=== PATIENT | female | born 1980 | race Hispanic/Latino ===

== ENCOUNTER 2019-03-08 20:03 | Emergency (ER) | payer SELFPAY ==
[2019-03-08] MEDS ORDERED: Metoclopramide HCl 10 MG/2 ML VIAL ONE (22:42)
[2019-03-08] MEDS ORDERED: diphenhydrAMINE 50 MG/ML VIAL ONE (22:42)
--- NOTE | 2019-03-08 22:59 | CT ---
FCT Brain WO Con: 03/08/2019 10:35 PM CLINICAL HISTORY: Headache. COMPARISON: None. FINDINGS: Hemorrhage: None. Ventricular system: Normal in size and morphology for the patient's age. Cerebral parenchyma: Normal Midline shift: None. Mass: No mass effect. Calvarium: Normal. Visualized Paranasal sinuses: Clear. IMPRESSION: No acute intracranial abnormalities.
[2019-03-08] MEDS ORDERED: Proparacaine 0.5% Opth 15 ML BOT ONE (23:00)
== END 2019-03-09 00:13 | disposition home or self-care (01) ==
LOC: ERS 20:03
DX: R51 Headache (principal)
CPT/HCPCS: 36416; 70450; 96365; 96375; J1200; J2765

== ENCOUNTER 2020-10-19 16:34 | Emergency (ER) | payer OTHER ==
[2020-10-19] MEDS ORDERED: Acetaminophen 325 MG TAB ONE (17:25)
[2020-10-19] MEDS ORDERED: Ondansetron PF 4 MG/2 ML Vial ONE (17:25)
[2020-10-19] MEDS ORDERED: Ibuprofen 200 MG TAB ONE (17:25)
[2020-10-19 17:54] LABS: #Lymphocytes 0.7 thou/uL (1.20-3.40); #Monocytes 0.3 thou/uL (0.11-0.59); #Neutrophils 3.4 thou/uL (1.40-6.50); %Basophils 0.6 % (0.0-1.0); %Eosinophils 0.3 % (0.0-10.0); %Lymphocytes 14.9 % (21.0-51.0); %Monocytes 7.7 % (0.0-10.0); %Neutrophils 76.5 % (42.0-75.0); Hemoglobin 14.8 g/dL (12.0-16.0); Mean Corpuscular HGB CONC 33.2 g/dL (32.0-36.0); Mean Corpuscular Hemoglobin 31.7 pg (27.0-31.0); Mean Corpuscular Volume 95.6 fL (78.0-98.0); Mean Platelet Volume 9.4 fL (7.4-10.4); Platelet Count 145 thou/uL (130-400); RBC Distribution Width 12.1 % (11.5-14.5); Red Blood Cell (RBC) Count 4.67 mill/uL (4.20-5.40); White Blood Cell (WBC) Count 4.4 thou/uL (4.8-10.8)
--- NOTE | 2020-10-19 18:20 | RAD ---
PORTABLE CHEST: 10/19/20 HISTORY: Cough. Positive COVID. There are hazy infiltrates seen in the left mid and lower lung. Elevated left hemidiaphragm. Right lung appears clear. Heart and mediastinum unremarkable. IMPRESSION: Hazy infiltrates in the left mid and lower lung consistent with COVID pneumonia. POS: [facility]
[2020-10-19 18:21] LABS: ALT (SGPT) 203 U/L (8-55); AST (SGOT) 218 U/L (5-34); Albumin 3.9 g/dL (3.5-5.0); Alkaline Phosphatase 274 U/L (40-110); Anion Gap 16 mmol/L (10-20); BUN (Urea Nitrogen) 11 mg/dL (7.0-18.7); Bilirubin, Total 0.4 mg/dL (0.2-1.2); Calc. Creatinine Clearance 0 mL/min (70-130); Calcium 8.3 mg/dL (7.8-10.44); Carbon Dioxide 17 mmol/L (22-29); Chloride 104 mmol/L (98-107); Estimated GFR-MDRD 73; Globulin 3.9 g/dL (2.4-3.5); Glucose 128 mg/dL (70-105); Potassium 3.9 mmol/L (3.5-5.1); Protein, Total 7.8 g/dL (6.0-8.3); Sodium 133 mmol/L (136-145)
[2020-10-19 18:32] LABS: BHCG - Serum Negative (NEGATIVE); Pregs Control Background? CLEAR/WHITE (CLR/WHITE); Pregs Control Bar Appear? YES (CONTROL BAR)
[2020-10-19] MEDS ORDERED: cefTRIAXone\\ROCEPHIN 2 GM VIAL ONE (18:40)
[2020-10-19] MEDS ORDERED: Azithromycin 500 MG in Sodium Chloride 0.9% 250 ML 250 ML IVPB ONE (19:15)
--- NOTE | 2020-10-22 16:34 | EKG ---
Test Reason : Blood Pressure : / mmHG Vent. Rate : 127 BPM Atrial Rate : 127 BPM P-R Int : 126 ms QRS Dur : 078 ms QT Int : 276 ms P-R-T Axes : 118 -24 145 degrees QTc Int : 401 ms Sinus tachycardia Low voltage QRS Cannot rule out Anterior infarct , age undetermined Abnormal ECG Confirmed by JUANCHO HODGES DO ([id number]), editor at large DAVEY SINGH ([id number]) on 10/22/2020 4:34:03 PM Referred By: Confirmed By:JUANCHO HODGES DO
== END 2020-10-19 20:46 | disposition home or self-care (01) ==
LOC: ERS 16:34
DX: U07.1 COVID-19 (principal); J12.89 Other viral pneumonia
CPT/HCPCS: 36415; 71045; 80053; 83605; 84484; 84703; 85025; 85379; 87040; 93005; 96365; 96367; 96375; J0456; J0696; J2405; J7050

== ENCOUNTER 2020-10-21 18:42 | Inpatient (IN) | payer OTHER ==
[~2020-10-21 18:42] MED LIST: Iopamidol-370 76% 500 ML 1 ML ONE
[2020-10-21] MEDS ORDERED: Acetaminophen 500 MG TAB ONE (19:10)
[2020-10-21] MEDS ORDERED: CEFAZOLIN 1 GM VIAL ONE (19:10)
[2020-10-21] MEDS ORDERED: Azithromycin 500 MG VIAL ONE (19:10)
[2020-10-21] MEDS ORDERED: cefTRIAXone\\ROCEPHIN 1 GM VIAL ONE (19:11)
[2020-10-21 19:45] LABS: Hemoglobin 14.2 g/dL (12.0-16.0); Mean Corpuscular HGB CONC 33.1 g/dL (32.0-36.0); Mean Corpuscular Hemoglobin 31.5 pg (27.0-31.0); Mean Corpuscular Volume 95.4 fL (78.0-98.0); Mean Platelet Volume 8.7 fL (7.4-10.4); Platelet Count 217 thou/uL (130-400); RBC Distribution Width 12.3 % (11.5-14.5); Red Blood Cell (RBC) Count 4.49 mill/uL (4.20-5.40)
--- NOTE | 2020-10-21 19:48 | RAD ---
EXAM: CHEST ONE VIEW PORTABLE: 10/21/20 HISTORY: COVID positive. Increasing shortness of breath. COMPARISON: 10/02/20 FINDINGS: There are progressive bilateral alveolar and ground glass opacity changes when compared to the prior study. Very poor inspiratory effort. IMPRESSION: Worsening bilateral COVID pneumonia with considerable decreased inspiration. POS: [facility]
[2020-10-21] MEDS ORDERED: Azithromycin 250 MG TAB ONE (19:49)
[2020-10-21 20:08] LABS: ALT (SGPT) 162 U/L (8-55); AST (SGOT) 91 U/L (5-34); Albumin 3.6 g/dL (3.5-5.0); Alkaline Phosphatase 268 U/L (40-110); Anion Gap 17 mmol/L (10-20); BUN (Urea Nitrogen) 7 mg/dL (7.0-18.7); Band 12 % (5-11); Bilirubin, Total 0.5 mg/dL (0.2-1.2); Calc. Creatinine Clearance 0 mL/min (70-130); Calcium 8.6 mg/dL (7.8-10.44); Carbon Dioxide 17 mmol/L (22-29); Chloride 107 mmol/L (98-107); Estimated GFR-MDRD 70; Globulin 3.9 g/dL (2.4-3.5); Glucose 128 mg/dL (70-105); Lipase 27 U/L (8-78); Lymphocytes 2 % (21-51); MDiff Complete? YES; Neutrophil 86 % (42-75); Potassium 3.7 mmol/L (3.5-5.1); Protein, Total 7.5 g/dL (6.0-8.3); Sodium 137 mmol/L (136-145)
[2020-10-21] MEDS ORDERED: Dexamethasone 10 MG/ML VIAL ONE (21:24)
[2020-10-21] MEDS ORDERED: Azithromycin 500 MG in Sodium Chloride 0.9% 250 ML 250 ML IVPB SCH (21:30)
--- NOTE | 2020-10-21 22:30 | PDOC.BPN ---
- Brief Progress Note [id number] HP dictated
[2020-10-21 22:35] LABS: BHCG - Serum Negative (NEGATIVE); Pregs Control Background? CLEAR/WHITE (CLR/WHITE); Pregs Control Bar Appear? YES (CONTROL BAR)
--- NOTE | 2020-10-21 23:29 | CT ---
CT angiogram chest: 10/21/2020 HISTORY: Dyspnea, elevated d-dimer TECHNIQUE: Axial CT imaging at 2.5 mm intervals through the chest with IV contrast using CT angiogram protocol. Coronal and sagittal 3-D reformatted imaging obtained. FINDINGS: There is extensive diffuse bilateral multi lobar groundglass opacity/interstitial disease w ith multifocal consolidation, left greater than right. No axillary, hilar, or mediastinal lymphadenopathy is noted. A linear suture line is seen in the region of the stomach. Cholecystectomy clips are present. A mild degree of distal esophageal wall thickening and luminal prominence noted. No evidence for pulmonary arterial embolism. No acute osseous abnormality. IMPRESSION: Extensive severe airspace disease/groundglass opacity bilaterally, suspicious for atypica l infectious pneumonitis such as Covid 19. No evidence for a pulmonary arterial embolism.
--- NOTE | 2020-10-22 00:08 | HP ---
CHIEF COMPLAINT: Shortness of breath. HISTORY OF PRESENT ILLNESS: Ms. Valle is a 40-year-old female with no significant past medical history, presents to the emergency room with shortness of breath. The patient was diagnosed with COVID pneumonia yesterday, however, she has been symptomatic for the last 5 days, presented with fevers, chest pain and shortness of breath. Chest pain is described as sharp in nature, worse with deep inspiration. Workup in the emergency room including chest x-ray showed worsening bilateral COVID pneumonia. D-dimer was 0.5. Troponin less than 0.01. Electrolytes elevated. Alkaline phosphatase 268, AST 91, ALT 162, glucose is 128. WBC count is 26, hemoglobin 14.2, platelets 217, 86% neutrophils, 12 bands, and 2% lymphocytes. In the emergency room, patient was given IV antibiotics, IV dexamethasone, and placed on oxygen. Her oxygen saturation was 88% on room air. PHYSICAL EXAMINATION: GENERAL: The patient is awake, in moderate distress. VITAL SIGNS: Blood pressure is 104/38, pulse is 101, respiratory rate is 24, temperature 101.8. Oxygen saturation is 88% on room air, 94% on 4 L/minute nasal cannula. HEAD AND NECK: Head normocephalic, atraumatic. Neck is supple. CHEST: Coarse bilateral breath sounds. Respirations are labored. HEART: S1, S2. Regular, tachycardic. ABDOMEN: Soft, nontender, soft. Bowel sounds present. NEUROLOGIC: Awake, alert, moving extremities. PSYCH: Unable to assess. EXTREMITIES: No clubbing or cyanosis. LABORATORY DATA: As mentioned above in history of present illness. IMAGING STUDIES: As mentioned above in history of present illness. ASSESSMENT: 1. Acute hypoxic respiratory failure. 2. Pneumonia secondary to coronavirus disease 2019 virus infection. 3. Transaminitis. 4. Sepsis secondary to coronavirus disease 2019 virus infection? PLAN: 1. Admit. 2. Septic workup in the ED. 3. Isolation precautions. 4. Oxygen to keep saturation more than 92%. 5. IV dexamethasone. 6. Bronchodilators as needed. 7. Consult Pulmonary in a.m. for evaluation and further recommendations. 8. Reconcile home medications. 9. DVT prophylaxis as appropriate. 10. Expected length of stay, 2 midnights or more. Job ID: [id number]
[2020-10-22 00:39] LABS: Bilirubin Negative (Negative); Blood, Urine 1+ (Negative); Clarity Clear (Clear); Glucose, Urine (Dipstick) Normal (Negative); Ketone, Urine Trace mg/dL (Negative); Leukocyte Negative Leu/uL (Negative); Nitrite Negative (Negative); Protein, Urine (Dipstick) 300 mg/dL (Neg-Trace); RBC/HPF 21-50 HPF (0-3); Squamous Epithelial 0-3 HPF (0-3); Urobilinogen Normal mg/dL (Less than 2)
[2020-10-22 00:40] LABS: Bacteria/HPF Rare-Few HPF (None Seen); Specific Gravity, Urine 1.052 (1.002-1.036)
[2020-10-22 07:47] LABS: Band 13 % (5-11); Hemoglobin 12.6 g/dL (12.0-16.0); Lymphocytes 3 % (21-51); MDiff Complete? YES; Mean Corpuscular HGB CONC 33.6 g/dL (32.0-36.0); Mean Corpuscular Hemoglobin 32.2 pg (27.0-31.0); Mean Corpuscular Volume 95.6 fL (78.0-98.0); Mean Platelet Volume 8.5 fL (7.4-10.4); Monocytes 1 % (0-10); Neutrophil 83 % (42-75); Platelet Count 214 thou/uL (130-400); RBC Distribution Width 12.2 % (11.5-14.5); Red Blood Cell (RBC) Count 3.92 mill/uL (4.20-5.40)
[2020-10-22] MEDS ORDERED: Enoxaparin Sodium 40 MG/0.4 ML SYRINGE ONE (08:29)
[2020-10-22] MEDS ORDERED: Famotidine 20 MG TAB ONE (08:29)
[2020-10-22] MEDS: Dexamethasone 6 MG in Sodium Chloride 0.9% 50 ML IVPB SCH (09:04)
[2020-10-22] MEDS: Enoxaparin Sodium 40 MG/0.4 ML SYRINGE SC SCH (09:07)
[2020-10-22] MEDS: Famotidine 20 MG TAB PO SCH ×2 (09:08→20:47)
[2020-10-22] MEDS ORDERED: Acetaminophen 325 MG TAB ONE (11:49)
--- NOTE | 2020-10-22 11:50 | PDOC.HOSPP ---
- Subjective Encounter Date: 10/22/20 (f/u COVID pneumonia) Encounter Time: 11:48 Subjective: Pt c/o shortness of breath, coughing - thick feeling in chest but not productive, diarrhea (ongoing x 10 days). She was feeling anxious like she couldn't breathe earlier. She's had respiratory sx for 4 days. - Objective Result Diagrams: 10/22/20 06:57 10/22/20 11:54 Hospitalist ROS - Medication Medications: Active Medications Generic Name Dose Route Start Last Admin Trade Name Duc PRN Reason Stop Dose Admin Enoxaparin Sodium 40 mg 10/22/20 09:00 10/22/20 09:07 Enoxaparin Sodium 40 Mg/0.4 Ml Syringe SC 40 mg 0900 YANETH Administration Famotidine 20 mg 10/22/20 09:00 10/22/20 09:08 Famotidine 20 Mg Tab PO 20 mg BID YANETH Administration Azithromycin 500 mg/ Sodium 250 mls @ 250 mls/hr 10/21/20 21:30 10/21/20 19:45 Chloride IVPB 250 mls Q24HR YANETH Administration Dexamethasone 6 mg/ Sodium 50.6 mls @ 100 mls/hr 10/22/20 09:00 10/22/20 09:04 Chloride IVPB 50.6 mls DAILY YANETH Administration - Exam General Appearance: NAD Heart: RRR, no murmur Respiratory: no wheezes, no rales, no ronchi Respiratory - other findings: decreased breath sounds throughout, shallow breaths Gastrointestinal: soft, non-tender, non-distended, normal bowel sounds Extremities: no cyanosis, no clubbing, no edema Psychiatric: normal affect Hosp A/P (1) Pneumonia due to COVID-19 virus Code(s): U07.1 - COVID-19; J12.89 - OTHER VIRAL PNEUMONIA Status: Acute (2) Acute respiratory failure Code(s): J96.00 - ACUTE RESPIRATORY FAILURE, UNSP W HYPOXIA OR HYPERCAPNIA Status: Acute (3) Obesity Code(s): E66.9 - OBESITY, UNSPECIFIED Status: Acute (4) Elevated liver enzymes Code(s): R74.8 - ABNORMAL LEVELS OF OTHER SERUM ENZYMES Status: Acute - Plan Acute resp failure secondary to COVID pneumonia - continue high flow oxygen - continue steroids, abx - Consult Pulm for additional tx recommendations. - Will see if ID is available for consult/recs - prn albuterol MDI - prn very low dose alprazolam for anxious sx - prn cough med - obtain ferritin and crp levels Elevated liver tests - trend dvt prophy - lovenox gi prophy - famotidine while on steroids code status full reviewed plan of care with patient, no questions or further needs at end of eval. Addendum - spoke with Dr. Lerner - d/c abx and start remdesivir. I d/w pharmacist to order medication.
[2020-10-22 12:23] LABS: ALT (SGPT) 119 U/L (8-55); AST (SGOT) 57 U/L (5-34); Albumin 3.2 g/dL (3.5-5.0); Alkaline Phosphatase 217 U/L (40-110); Anion Gap 17 mmol/L (10-20); BUN (Urea Nitrogen) 9 mg/dL (7.0-18.7); Bilirubin, Total 0.4 mg/dL (0.2-1.2); Calc. Creatinine Clearance 0 mL/min (70-130); Calcium 8.2 mg/dL (7.8-10.44); Carbon Dioxide 16 mmol/L (22-29); Chloride 110 mmol/L (98-107); Estimated GFR-MDRD Greater than 90; Globulin 3.5 g/dL (2.4-3.5); Glucose 132 mg/dL (70-105); Potassium 3.9 mmol/L (3.5-5.1); Protein, Total 6.7 g/dL (6.0-8.3); Sodium 139 mmol/L (136-145)
[2020-10-22] MEDS ORDERED: ALPRAZolam 0.25 MG TAB ONE (13:16)
[2020-10-22] MEDS: ALPRAZolam 0.25 MG TAB PO PRN ×2 (13:18→20:51)
[2020-10-22] MEDS: Benzonatate 100 MG CAP PO PRN ×2 (13:19→18:19)
[2020-10-22] MEDS: Guaifenesin DM 100-10/5 ML UDCUP PO PRN ×2 (13:19→20:51)
[2020-10-22] MEDS ORDERED: Albuterol 200 PUFF (6.7GM INHALER) INH PRN (14:05)
[2020-10-22] MEDS ORDERED: REMDESIVIR FS SCH (14:15)
[2020-10-22] MEDS ORDERED: REMDESIVIR (EUA) 200 MG in Sodium Chloride 0.9% 250 ML 210 ML IV SCH (14:30)
--- NOTE | 2020-10-22 17:16 | EKG ---
Test Reason : DYSPNEA Blood Pressure : / mmHG Vent. Rate : 118 BPM Atrial Rate : 118 BPM P-R Int : 134 ms QRS Dur : 090 ms QT Int : 312 ms P-R-T Axes : 027 007 029 degrees QTc Int : 437 ms Sinus tachycardia Otherwise normal ECG Confirmed by VICKY ARNOLD DO ([id number]), multimedia editor DAVEY SINGH ([id number]) on 10/22/2020 5:15:47 PM Referred By: Confirmed By:VICKY ARNOLD DO
[2020-10-22] MEDS ORDERED: cefTRIAXone\\ROCEPHIN 1 GM in Sodium Chloride 0.9% 100 ML IVPB SCH (20:00)
[2020-10-22] MEDS: Acetaminophen 325 MG TAB PO PRN (20:47)
[2020-10-23 06:11] LABS: #Lymphocytes 0.7 thou/uL (1.20-3.40); #Monocytes 0.5 thou/uL (0.11-0.59); #Neutrophils 13.5 thou/uL (1.40-6.50); %Basophils 0.1 % (0.0-1.0); %Eosinophils 0.2 % (0.0-10.0); %Neutrophils 91.8 % (42.0-75.0); Hemoglobin 12.3 g/dL (12.0-16.0); Mean Corpuscular HGB CONC 33.1 g/dL (32.0-36.0); Mean Corpuscular Hemoglobin 31.7 pg (27.0-31.0); Mean Corpuscular Volume 95.8 fL (78.0-98.0); Mean Platelet Volume 8.5 fL (7.4-10.4); Platelet Count 239 thou/uL (130-400); RBC Distribution Width 12.4 % (11.5-14.5); Red Blood Cell (RBC) Count 3.89 mill/uL (4.20-5.40); White Blood Cell (WBC) Count 14.8 thou/uL (4.8-10.8)
[2020-10-23 06:33] LABS: ALT (SGPT) 102 U/L (8-55); AST (SGOT) 53 U/L (5-34); Alkaline Phosphatase 196 U/L (40-110); Anion Gap 17 mmol/L (10-20); BUN (Urea Nitrogen) 14 mg/dL (7.0-18.7); Bilirubin, Total 0.4 mg/dL (0.2-1.2); Calc. Creatinine Clearance 176 mL/min (70-130); Calcium 8.1 mg/dL (7.8-10.44); Carbon Dioxide 17 mmol/L (22-29); Chloride 109 mmol/L (98-107); Estimated GFR-MDRD Greater than 90; Globulin 3.4 g/dL (2.4-3.5); Glucose 127 mg/dL (70-105); Potassium 3.7 mmol/L (3.5-5.1); Protein, Total 6.4 g/dL (6.0-8.3); Sodium 139 mmol/L (136-145)
[2020-10-23] MEDS: Guaifenesin DM 100-10/5 ML UDCUP PO PRN (07:59)
[2020-10-23] MEDS ORDERED: FLU VACC QS2020-21(6MOS UP)/PF 60 MCG/0.5 ML SYRINGE IM ONE (09:00)
[2020-10-23] MEDS: Famotidine 20 MG TAB PO SCH ×2 (09:58→21:30)
[2020-10-23] MEDS: Dexamethasone 6 MG in Sodium Chloride 0.9% 50 ML IVPB SCH ×2 (09:59→21:29)
[2020-10-23] MEDS: Enoxaparin Sodium 40 MG/0.4 ML SYRINGE SC SCH ×2 (09:59→21:28)
--- NOTE | 2020-10-23 12:31 | PDOC.HOSPP ---
- Subjective Encounter Date: 10/23/20 (f/u acute resp failure due to covid pna) Encounter Time: 12:29 Subjective: Pt reports feeling a little more comfortable, but still feels short of breath. Denies any n/v, reports the diarrhea persists. Denies any new sx. - Objective Vital Signs & Weight: Vital Signs (12 hours) Temp Pulse Resp BP Pulse Ox 10/23/20 04:00 98 F 69 18 120/85 100 Weight Weight 205 lb 15.646 oz I&O: 10/22/20 10/23/20 10/24/20 06:59 06:59 06:59 Intake Total 950 Balance 950 Result Diagrams: 10/23/20 06:00 10/23/20 06:00 Additional Labs: Blood and urine cultures negative c diff negative. Hospitalist ROS - Medication Medications: Active Medications Generic Name Dose Route Start Last Admin Trade Name Freq PRN Reason Stop Dose Admin Acetaminophen 650 mg 10/21/20 21:29 10/22/20 20:47 Acetaminophen 325 Mg Tab PO 650 mg Q4H PRN Administration Headache/Fever/Mild Pain (1-3) Alprazolam 0.25 mg 10/22/20 11:46 10/22/20 20:51 Alprazolam 0.25 Mg Tab PO 0.25 mg BIDPRN PRN Administration Anxiety Benzonatate 100 mg 10/22/20 11:46 10/22/20 18:19 Benzonatate 100 Mg Cap PO 100 mg Q4H PRN Administration Cough Famotidine 20 mg 10/22/20 09:00 10/23/20 09:58 Famotidine 20 Mg Tab PO 20 mg BID YANETH Administration Guaifenesin/Dextromethorphan 15 ml 10/22/20 11:46 10/23/20 07:59 Guaifenesin Dm 100-10/5 Ml Udcup PO 15 ml Q4H PRN Administration Cough - Exam General Appearance: NAD Heart: RRR, no murmur Respiratory: no wheezes, no rales, no ronchi Respiratory - other findings: decreased breath sounds throughout-slight improvement compared to yesterday Gastrointestinal: soft, non-tender, non-distended, normal bowel sounds Extremities: no cyanosis, no clubbing, no edema Psychiatric: normal affect Hosp A/P (1) Pneumonia due to COVID-19 virus Code(s): U07.1 - COVID-19; J12.89 - OTHER VIRAL PNEUMONIA Status: Acute (2) Acute respiratory failure Code(s): J96.00 - ACUTE RESPIRATORY FAILURE, UNSP W HYPOXIA OR HYPERCAPNIA Status: Acute (3) Obesity Code(s): E66.9 - OBESITY, UNSPECIFIED Status: Acute (4) Elevated liver enzymes Code(s): R74.8 - ABNORMAL LEVELS OF OTHER SERUM ENZYMES Status: Acute - Plan Acute resp failure secondary to COVID pneumonia - continue high flow oxygen - continue steroids - on remdesivir day 2 of 5 - albuterol prn - daily inflammatory markers - Pulmonology consultation - per Dr. Boyd, convalescent plasma will be ordered Elevated liver tests - attributed to covid infection - trend dvt prophy - lovenox gi prophy - famotidine while on steroids code status full reviewed plan of care with patient, no questions or further needs at end of eval.
--- NOTE | 2020-10-23 14:52 | CON ---
DATE OF CONSULTATION: HISTORY OF PRESENT ILLNESS: Domonique Valle is a 40-year-old obese [place] female, who weighs 157 kg, who was admitted on Saturday, the 1844 hours with O2 saturation of 88%, pulse 130, blood pressure 130/80. She said she has been sick for several days, fever, shortness of breath, tested positive for virus. X-ray showed bibasilar infiltrates. CAT scan showed diffuse ground-glass haziness, consistent with coronavirus pneumonia. PAST MEDICAL HISTORY: Pertinent for morbid obesity. PAST SURGICAL HISTORY: Gastric bypass, cholecystectomy, and some kind of cyst removed. HOME MEDICINES: None. ALLERGIES: NONE. REVIEW OF SYSTEMS: Ten-point negative. PHYSICAL EXAMINATION: VITAL SIGNS: Temperature 98, pulse 69, respiratory rate 18, sats 100% on high-flow, rate 45, 45% FiO2, blood pressure 120/85. CHEST: No wheezing. No crackles. CARDIAC: Normal S1, S2. No gallops. ABDOMEN: Unremarkable. LABORATORY DATA: C-reactive protein is 16. Ferritin is 1497. Liver function elevated; ALT 102, AST 53. Lytes are normal. IMPRESSION: Santacruz positive pneumonia, respiratory failure, morbid obesity, gastric bypass surgery. PLAN: Increase the dose of remdesivir, Pepcid, Lovenox twice a day, convalescent plasma. Liver function abnormal. She was started on remdesivir. I will closely observe liver function. If levels go high, this may have to be discontinued. Consultation note, 70 minutes, 50% direct patient care. Job ID: [id number]
[2020-10-23] MEDS: REMDESIVIR (EUA) 100 MG in Sodium Chloride 0.9% 250 ML 230 ML IV SCH (15:12)
[2020-10-23] MEDS: Acetaminophen 325 MG TAB PO PRN ×2 (16:08→21:27)
[2020-10-23] MEDS ORDERED: Loperamide HCl 2 MG CAP PO PRN (18:09)
[2020-10-23] MEDS ORDERED: Famotidine/PF 20 mg/2ml Vial SLOW IVP SCH (21:00)
[2020-10-23] MEDS: Mometasone 200 MCG/Formoterol 5 MCG 120 PUFF INHALER INH SCH (21:26)
[2020-10-23] MEDS: Benzonatate 100 MG CAP PO PRN (21:27)
[2020-10-23] MEDS: ALPRAZolam 0.25 MG TAB PO PRN (21:28)
[2020-10-24 06:34] LABS: Hemoglobin 12.6 g/dL (12.0-16.0); Mean Corpuscular HGB CONC 33.7 g/dL (32.0-36.0); Mean Corpuscular Hemoglobin 31.8 pg (27.0-31.0); Mean Corpuscular Volume 94.5 fL (78.0-98.0); Mean Platelet Volume 8.6 fL (7.4-10.4); Platelet Count 261 thou/uL (130-400); RBC Distribution Width 12.3 % (11.5-14.5); Red Blood Cell (RBC) Count 3.97 mill/uL (4.20-5.40); White Blood Cell (WBC) Count 10.1 thou/uL (4.8-10.8)
[2020-10-24] MEDS: Mometasone 200 MCG/Formoterol 5 MCG 120 PUFF INHALER INH SCH ×2 (06:34→17:46)
[2020-10-24 06:45] LABS: ALT (SGPT) 93 U/L (8-55); AST (SGOT) 50 U/L (5-34); Alkaline Phosphatase 188 U/L (40-110); Bilirubin, Direct 0.3 mg/dL (0.1-0.3); Bilirubin, Total 0.4 mg/dL (0.2-1.2); Protein, Total 6.3 g/dL (6.0-8.3)
[2020-10-24 06:50] LABS: ALT (SGPT) 94 U/L (8-55); AST (SGOT) 48 U/L (5-34); Albumin 3.1 g/dL (3.5-5.0); Alkaline Phosphatase 189 U/L (40-110); Anion Gap 15 mmol/L (10-20); BUN (Urea Nitrogen) 12 mg/dL (7.0-18.7); Bilirubin, Total 0.5 mg/dL (0.2-1.2); CRP (Inflammatory) 6.97 mg/dL (= or < 0.5); Calc. Creatinine Clearance 179 mL/min (70-130); Calcium 8.1 mg/dL (7.8-10.44); Carbon Dioxide 20 mmol/L (22-29); Chloride 109 mmol/L (98-107); Estimated GFR-MDRD Greater than 90; Globulin 3.2 g/dL (2.4-3.5); Glucose 150 mg/dL (70-105); Potassium 3.5 mmol/L (3.5-5.1); Protein, Total 6.3 g/dL (6.0-8.3); Sodium 140 mmol/L (136-145)
[2020-10-24 07:00] LABS: Band 4 % (5-11); Lymphocytes 7 % (21-51); MDiff Complete? YES; Monocytes 1 % (0-10); Neutrophil 88 % (42-75)
[2020-10-24] MEDS: Enoxaparin Sodium 40 MG/0.4 ML SYRINGE SC SCH ×2 (08:24→20:30)
[2020-10-24] MEDS: Famotidine 20 MG TAB PO SCH ×2 (08:24→20:31)
[2020-10-24] MEDS: ALPRAZolam 0.25 MG TAB PO PRN ×2 (08:24→20:31)
[2020-10-24] MEDS: Dexamethasone 6 MG in Sodium Chloride 0.9% 50 ML IVPB SCH ×2 (08:25→20:30)
--- NOTE | 2020-10-24 11:33 | PRG ---
DATE OF SERVICE: 10/24/2020 SUBJECTIVE: Day #3 in the hospital, zepeda positive pneumonia. OBJECTIVE: VITAL SIGNS: Temperature 98, pulse 55, respiratory rate 16, sats 95% on FiO2 50, flow rate 45, blood pressure 130/76. GENERAL: She says she is doing well. CHEST: No wheezing. No crackles. CARDIAC: Normal S1 and S2. No gallops. ABDOMEN: No masses. LABORATORY DATA: Unremarkable. C-reactive protein is elevated at 6.97. ALT 93. IMPRESSION: Zepeda positive pneumonia, respiratory failure, on high-dose Decadron, remdesivir, convalescent plasma. PLAN: Continue supportive care, PT. We will follow. Job ID: [id number]
--- NOTE | 2020-10-24 12:29 | PDOC.HOSPP ---
- Subjective Encounter Date: 10/24/20 (f/u acute resp failure due to covid pna) Encounter Time: 12:27 Subjective: Pt thinks she feels a little better. She reports being very short of breath when she is up to the bedside commode. - Objective Vital Signs & Weight: Vital Signs (12 hours) Temp Pulse Resp BP Pulse Ox 10/24/20 09:00 98.3 F 55 L 16 113/76 94 L 10/24/20 08:00 94 L 10/24/20 04:03 98.4 F 64 18 132/80 97 Weight Weight 205 lb 15.646 oz I&O: 10/23/20 10/24/20 10/25/20 06:59 06:59 06:59 Intake Total 950 1190 Balance 950 1190 Result Diagrams: 10/24/20 06:00 10/24/20 06:00 Hospitalist ROS - Medication Medications: Active Medications Generic Name Dose Route Start Last Admin Trade Name Freq PRN Reason Stop Dose Admin Acetaminophen 650 mg 10/21/20 21:29 10/23/20 21:27 Acetaminophen 325 Mg Tab PO 650 mg Q4H PRN Administration Headache/Fever/Mild Pain (1-3) Albuterol Sulfate 2 puff 10/22/20 14:05 10/23/20 13:35 Albuterol 200 Puff (6.7gm Inhaler) INH 2 puff [id number] PRN Administration Wheezing Alprazolam 0.25 mg 10/22/20 11:46 10/24/20 08:24 Alprazolam 0.25 Mg Tab PO 0.25 mg BIDPRN PRN Administration Anxiety Benzonatate 100 mg 10/22/20 11:46 10/23/20 21:27 Benzonatate 100 Mg Cap PO 100 mg Q4H PRN Administration Cough Enoxaparin Sodium 40 mg 10/23/20 21:00 10/24/20 08:24 Enoxaparin Sodium 40 Mg/0.4 Ml Syringe SC 40 mg BID YANETH Administration Famotidine 20 mg 10/22/20 09:00 10/24/20 08:24 Famotidine 20 Mg Tab PO 20 mg BID YANETH Administration Guaifenesin/Dextromethorphan 15 ml 10/22/20 11:46 10/23/20 07:59 Guaifenesin Dm 100-10/5 Ml Udcup PO 15 ml Q4H PRN Administration Cough Remdesivir 100 mg/ Sodium 250 mls @ 250 mls/hr 10/23/20 14:00 10/23/20 15:12 Chloride IV 10/26/20 14:59 250 mls 1400 YANETH Administration Dexamethasone 6 mg/ Sodium 50.6 mls @ 100 mls/hr 10/23/20 21:00 10/24/20 08:25 Chloride IVPB 50.6 mls BID YANETH Administration Loperamide HCl 2 mg 10/23/20 18:09 10/23/20 21:32 Loperamide Hcl 2 Mg Cap PO 2 mg PRN PRN Administration Diarrhea/Loose Stools Mometasone Furoate/Formoterol Fumar 2 puff 10/23/20 18:30 10/24/20 06:34 Mometasone 200 Mcg/Formoterol 5 Mcg 120 Puff Inhaler INH 2 puff BID-RT YANETH Administration - Exam General Appearance: NAD Heart: RRR, no murmur Respiratory: no wheezes, no rales, no ronchi Respiratory - other findings: slightly deeper breaths today Gastrointestinal: soft, non-tender, non-distended, normal bowel sounds Extremities: no cyanosis, no clubbing, no edema Psychiatric: normal affect Hosp A/P (1) Pneumonia due to COVID-19 virus Code(s): U07.1 - COVID-19; J12.89 - OTHER VIRAL PNEUMONIA Status: Acute (2) Acute respiratory failure Code(s): J96.00 - ACUTE RESPIRATORY FAILURE, UNSP W HYPOXIA OR HYPERCAPNIA Status: Acute (3) Obesity Code(s): E66.9 - OBESITY, UNSPECIFIED Status: Acute (4) Elevated liver enzymes Code(s): R74.8 - ABNORMAL LEVELS OF OTHER SERUM ENZYMES Status: Acute - Plan Acute resp failure secondary to COVID pneumonia - improved WBC count and lower inflammatory markers - on day 3 of 5 remdesivir and steroids - s/p convalescent plasma - continue high flow oxygen - wean as tolerated - albuterol prn - appreciate Pulm consult Elevated liver tests - attributed to covid infection - stable dvt prophy - lovenox gi prophy - famotidine while on steroids code status full reviewed plan of care with patient, no questions or further needs at end of eval.
[2020-10-24] MEDS: REMDESIVIR (EUA) 100 MG in Sodium Chloride 0.9% 250 ML 230 ML IV SCH (15:00)
[2020-10-24] MEDS: Benzonatate 100 MG CAP PO PRN (20:31)
[2020-10-24] MEDS: Acetaminophen 325 MG TAB PO PRN (20:31)
[2020-10-25] MEDS: Mometasone 200 MCG/Formoterol 5 MCG 120 PUFF INHALER INH SCH ×2 (05:55→17:35)
[2020-10-25 06:55] LABS: ALT (SGPT) 115 U/L (8-55); AST (SGOT) 68 U/L (5-34); Alkaline Phosphatase 183 U/L (40-110); Bilirubin, Direct 0.5 mg/dL (0.1-0.3); Bilirubin, Total 0.7 mg/dL (0.2-1.2)
[2020-10-25 06:56] LABS: ALT (SGPT) 118 U/L (8-55); AST (SGOT) 67 U/L (5-34); Albumin 2.9 g/dL (3.5-5.0); Alkaline Phosphatase 186 U/L (40-110); Anion Gap 14 mmol/L (10-20); BUN (Urea Nitrogen) 11 mg/dL (7.0-18.7); Bilirubin, Total 0.6 mg/dL (0.2-1.2); CRP (Inflammatory) 3.45 mg/dL (= or < 0.5); Calc. Creatinine Clearance 179 mL/min (70-130); Calcium 7.9 mg/dL (7.8-10.44); Carbon Dioxide 22 mmol/L (22-29); Chloride 108 mmol/L (98-107); Estimated GFR-MDRD Greater than 90; Globulin 3.1 g/dL (2.4-3.5); Glucose 175 mg/dL (70-105); Potassium 3.4 mmol/L (3.5-5.1); Sodium 141 mmol/L (136-145)
[2020-10-25] MEDS: Enoxaparin Sodium 40 MG/0.4 ML SYRINGE SC SCH ×2 (08:10→20:06)
[2020-10-25] MEDS: ALPRAZolam 0.25 MG TAB PO PRN ×2 (08:10→20:08)
[2020-10-25] MEDS: Benzonatate 100 MG CAP PO PRN ×3 (08:10→20:06)
[2020-10-25] MEDS: Guaifenesin DM 100-10/5 ML UDCUP PO PRN ×3 (08:10→20:06)
[2020-10-25] MEDS: Dexamethasone 6 MG in Sodium Chloride 0.9% 50 ML IVPB SCH ×2 (08:10→20:06)
[2020-10-25] MEDS: Famotidine 20 MG TAB PO SCH ×2 (08:15→20:06)
[2020-10-25] MEDS: Sodium Chloride 0.9% 1,000 ML IV SCH ×2 (09:17→20:07)
[2020-10-25 09:18] LABS: Hemoglobin 12.7 g/dL (12.0-16.0); Lymphocytes 8 % (21-51); MDiff Complete? YES; Mean Corpuscular HGB CONC 33.9 g/dL (32.0-36.0); Mean Corpuscular Hemoglobin 31.9 pg (27.0-31.0); Mean Corpuscular Volume 94.2 fL (78.0-98.0); Mean Platelet Volume 8.6 fL (7.4-10.4); Metamyelocyte 1 % (0-0); Monocytes 5 % (0-10); Myelocyte 1 % (0-0); Neutrophil 85 % (42-75); Platelet Count 285 thou/uL (130-400); Platelet Morphology Comment Appears Adequate; RBC Distribution Width 12.1 % (11.5-14.5); RBC Morphology Normal; Red Blood Cell (RBC) Count 3.98 mill/uL (4.20-5.40); White Blood Cell (WBC) Count 8.8 thou/uL (4.8-10.8)
--- NOTE | 2020-10-25 10:35 | PRG ---
DATE OF SERVICE: 10/25/2020 Santacruz positive pneumonia, respiratory failure, better. OBJECTIVE: VITAL SIGNS: Temperature is 98, pulse 68, respirations 20, sats 97% on high-flow 45% to 50%, blood pressure 103/68. CHEST: No wheezing. No crackles. CARDIAC: Normal S1 and S2. No gallops. ABDOMEN: No masses. LABORATORY DATA: C-reactive protein is 3.5. Liver function elevated, 186 and 118. PLAN: Continue steroids. Continue Remdesivir. Baseline x-ray being ordered. Job ID: [id number]
--- NOTE | 2020-10-25 12:58 | PDOC.HOSPP ---
- Subjective Encounter Date: 10/25/20 Encounter Time: 10:30 Subjective: Patient up in bed still feels short of breath and has generalized weakness. - Objective Vital Signs & Weight: Vital Signs (12 hours) Temp Pulse Resp BP Pulse Ox 10/25/20 08:39 98.6 F 68 20 103/68 97 10/25/20 08:00 97 10/25/20 05:00 98.1 F 64 18 103/68 96 Weight Weight 205 lb 15.646 oz I&O: 10/24/20 10/25/20 10/26/20 06:59 06:59 06:59 Intake Total 1190 1020 Balance 1190 1020 Result Diagrams: 10/25/20 06:22 10/25/20 06:22 Hospitalist ROS - Review of Systems Respiratory: reports: shortness of breath Cardiovascular: denies: chest pain, palpitations, orthopnea, paroxysmal noc. dyspnea, edema, light headedness, other Gastrointestinal: denies: nausea, vomiting, abdominal pain, diarrhea, constipation, melena, hematochezia, other Genitourinary: denies: dysuria, frequency, incontinence, hematuria, retention, other - Medication Medications: Active Medications Generic Name Dose Route Start Last Admin Trade Name Freq PRN Reason Stop Dose Admin Acetaminophen 650 mg 10/21/20 21:29 10/24/20 20:31 Acetaminophen 325 Mg Tab PO 650 mg Q4H PRN Administration Headache/Fever/Mild Pain (1-3) Albuterol Sulfate 2 puff 10/22/20 14:05 10/23/20 13:35 Albuterol 200 Puff (6.7gm Inhaler) INH 2 puff [id number] PRN Administration Wheezing Alprazolam 0.25 mg 10/22/20 11:46 10/25/20 08:10 Alprazolam 0.25 Mg Tab PO 0.25 mg BIDPRN PRN Administration Anxiety Benzonatate 100 mg 10/22/20 11:46 10/25/20 08:10 Benzonatate 100 Mg Cap PO 100 mg Q4H PRN Administration Cough Enoxaparin Sodium 40 mg 10/23/20 21:00 10/25/20 08:10 Enoxaparin Sodium 40 Mg/0.4 Ml Syringe SC 40 mg BID YANETH Administration Famotidine 20 mg 10/22/20 09:00 10/25/20 08:15 Famotidine 20 Mg Tab PO 20 mg BID YANETH Administration Guaifenesin/Dextromethorphan 15 ml 10/22/20 11:46 10/25/20 08:10 Guaifenesin Dm 100-10/5 Ml Udcup PO 15 ml Q4H PRN Administration Cough Remdesivir 100 mg/ Sodium 250 mls @ 250 mls/hr 10/23/20 14:00 10/24/20 15:00 Chloride IV 10/26/20 14:59 250 mls 1400 YANETH Administration Dexamethasone 6 mg/ Sodium 50.6 mls @ 100 mls/hr 10/23/20 21:00 10/25/20 08:10 Chloride IVPB 50.6 mls BID YANETH Administration Sodium Chloride 1,000 mls @ 75 mls/hr 10/25/20 09:15 10/25/20 09:17 Normal Saline 0.9% IV 1,000 mls .[id number] YANETH Administration Loperamide HCl 2 mg 10/23/20 18:09 10/23/20 21:32 Loperamide Hcl 2 Mg Cap PO 2 mg PRN PRN Administration Diarrhea/Loose Stools Mometasone Furoate/Formoterol Fumar 2 puff 10/23/20 18:30 10/25/20 05:55 Mometasone 200 Mcg/Formoterol 5 Mcg 120 Puff Inhaler INH 2 puff BID-RT YANETH Administration - Exam Neck: negative: supple, symmetric, no JVD, no thyromegaly, no lymphadenopathy, no carotid bruit, JVD Heart: negative: RRR, no murmur, no gallops, no rubs, normal peripheral pulses, irregular, diminshed peripheral pulses, murmur present, II/IV, III/IV Respiratory: negative: CTAB, no wheezes, no rales, no ronchi, normal chest expansion, no tachypnea, normal percussion, rales, rhonchi, tachypneic, wheezes Gastrointestinal: negative: soft, non-tender, non-distended, normal bowel sounds, no palpable masses, no hepatomegaly, no splenomegaly, no bruit, no guarding, no rigidity, tender to palpation, distended, diminished bowl sounds, voluntary guarding Hosp A/P (1) Acute respiratory failure Code(s): J96.00 - ACUTE RESPIRATORY FAILURE, UNSP W HYPOXIA OR HYPERCAPNIA Status: Acute (2) Elevated liver enzymes Code(s): R74.8 - ABNORMAL LEVELS OF OTHER SERUM ENZYMES Status: Acute (3) Obesity Code(s): E66.9 - OBESITY, UNSPECIFIED Status: Acute (4) Pneumonia due to COVID-19 virus Code(s): U07.1 - COVID-19; J12.89 - OTHER VIRAL PNEUMONIA Status: Acute - Plan Acute resp failure secondary to COVID pneumonia - improved WBC count and lower inflammatory markers - on day 4 of 5 remdesivir and steroids - s/p convalescent plasma - continue high flow oxygen - wean as tolerated - albuterol prn - appreciate Pulm consult Elevated liver tests - attributed to covid infection - stable dvt prophy - lovenox gi prophy - famotidine while on steroids code status full 10/25 we will continue to monitor patient encouraged to get up and move around. She still on high flow.
[2020-10-25] MEDS: REMDESIVIR (EUA) 100 MG in Sodium Chloride 0.9% 250 ML 230 ML IV SCH (14:35)
[2020-10-26] MEDS: Mometasone 200 MCG/Formoterol 5 MCG 120 PUFF INHALER INH SCH ×2 (05:55→18:29)
[2020-10-26] MEDS: Benzonatate 100 MG CAP PO PRN ×2 (05:56→20:53)
[2020-10-26] MEDS: Guaifenesin DM 100-10/5 ML UDCUP PO PRN ×3 (05:56→20:53)
[2020-10-26 07:18] LABS: ALT (SGPT) 133 U/L (8-55); AST (SGOT) 59 U/L (5-34); Albumin 2.8 g/dL (3.5-5.0); Alkaline Phosphatase 166 U/L (40-110); Bilirubin, Direct 0.4 mg/dL (0.1-0.3); Bilirubin, Total 0.6 mg/dL (0.2-1.2); Protein, Total 5.6 g/dL (6.0-8.3)
--- NOTE | 2020-10-26 08:01 | RAD ---
Chest one view HISTORY: Pneumonia. Follow-up. COMPARISON: 10/21/2020. FINDINGS: Cardiac silhouette is magnified by projection and now partially obscured by increasing dens ity of patchy bilateral infiltrates throughout each lung. Pulmonary vasculature upper limits of normal and accentuated by shallow inspiration. Mediastinum is midline. No evidence of pneumothorax. Hemostasis clips overlie the right upper quadrant. IMPRESSION : Slight interval radiographic worsening of multifocal viral appearing infiltrate.
--- NOTE | 2020-10-26 10:15 | PRG ---
DATE OF SERVICE: 10/26/2020 OBJECTIVE: GENERAL: A 40-year-old female. VITAL SIGNS: Temperature 98, pulse 69, respiratory rate 18, sats are 95% on high-flow, 40 rate, FiO2 of 50%, blood pressure 107/68. CHEST: No wheezing. No crackles. CARDIAC: Normal S1, S2. No gallops. LABORATORY DATA: X-ray shows persistent bilateral pulmonary infiltrates. ASSESSMENT AND PLAN: Day #4 remdesivir, convalescent plasma received, morbid obesity, abnormal LFT. Finish remdesivir, continue steroids and empiric antibiotics. Once able to download her oxygen to nasal O2, she may be discharged. We will follow. Job ID: [id number]
[2020-10-26] MEDS: Dexamethasone 6 MG in Sodium Chloride 0.9% 50 ML IVPB SCH ×2 (10:22→20:54)
[2020-10-26] MEDS: Enoxaparin Sodium 40 MG/0.4 ML SYRINGE SC SCH ×2 (10:22→20:53)
[2020-10-26] MEDS: Famotidine 20 MG TAB PO SCH ×2 (10:22→20:53)
[2020-10-26] MEDS: ALPRAZolam 0.25 MG TAB PO PRN ×2 (10:24→21:01)
--- NOTE | 2020-10-26 13:41 | PDOC.HOSPP ---
- Subjective Encounter Date: 10/26/20 Encounter Time: 11:45 Subjective: pt up in bed still complains of sob and weakness. - Objective Vital Signs & Weight: Vital Signs (12 hours) Temp Pulse Resp BP Pulse Ox 10/26/20 09:00 98.0 F 68 20 106/70 98 10/26/20 08:00 98 10/26/20 07:55 94 L 10/26/20 05:00 98.3 F 66 20 107/68 96 Weight Weight 205 lb 15.646 oz I&O: 10/25/20 10/26/20 10/27/20 06:59 06:59 06:59 Intake Total 1020 2450 Balance 1020 2450 Result Diagrams: 10/25/20 06:22 10/25/20 06:22 Hospitalist ROS - Review of Systems Respiratory: reports: shortness of breath Gastrointestinal: denies: nausea, vomiting, abdominal pain, diarrhea, constipation, melena, hematochezia, other Genitourinary: denies: dysuria, frequency, incontinence, hematuria, retention, other Musculoskeletal: denies: neck pain, shoulder pain, arm pain, back pain, hand pain, leg pain, foot pain, other - Medication Medications: Active Medications Generic Name Dose Route Start Last Admin Trade Name Freq PRN Reason Stop Dose Admin Acetaminophen 650 mg 10/21/20 21:29 10/24/20 20:31 Acetaminophen 325 Mg Tab PO 650 mg Q4H PRN Administration Headache/Fever/Mild Pain (1-3) Albuterol Sulfate 2 puff 10/22/20 14:05 10/23/20 13:35 Albuterol 200 Puff (6.7gm Inhaler) INH 2 puff [id number] PRN Administration Wheezing Alprazolam 0.25 mg 10/22/20 11:46 10/26/20 10:24 Alprazolam 0.25 Mg Tab PO 0.25 mg BIDPRN PRN Administration Anxiety Benzonatate 100 mg 10/22/20 11:46 10/26/20 05:56 Benzonatate 100 Mg Cap PO 100 mg Q4H PRN Administration Cough Enoxaparin Sodium 40 mg 10/23/20 21:00 10/26/20 10:22 Enoxaparin Sodium 40 Mg/0.4 Ml Syringe SC 40 mg BID YANETH Administration Famotidine 20 mg 10/22/20 09:00 10/26/20 10:22 Famotidine 20 Mg Tab PO 20 mg BID YANETH Administration Guaifenesin/Dextromethorphan 15 ml 10/22/20 11:46 10/26/20 10:23 Guaifenesin Dm 100-10/5 Ml Udcup PO 15 ml Q4H PRN Administration Cough Remdesivir 100 mg/ Sodium 250 mls @ 250 mls/hr 10/23/20 14:00 10/25/20 14:35 Chloride IV 10/26/20 14:59 250 mls 1400 YANETH Administration Dexamethasone 6 mg/ Sodium 50.6 mls @ 100 mls/hr 10/23/20 21:00 10/26/20 10:22 Chloride IVPB 50.6 mls BID YANETH Administration Sodium Chloride 1,000 mls @ 75 mls/hr 10/25/20 09:15 10/25/20 20:07 Normal Saline 0.9% IV 1,000 mls .[id number] YANETH Administration Loperamide HCl 2 mg 10/23/20 18:09 10/23/20 21:32 Loperamide Hcl 2 Mg Cap PO 2 mg PRN PRN Administration Diarrhea/Loose Stools Mometasone Furoate/Formoterol Fumar 2 puff 10/23/20 18:30 10/26/20 05:55 Mometasone 200 Mcg/Formoterol 5 Mcg 120 Puff Inhaler INH 2 puff BID-RT YANETH Administration - Exam Heart: negative: RRR, no murmur, no gallops, no rubs, normal peripheral pulses, irregular, diminshed peripheral pulses, murmur present, II/IV, III/IV Respiratory: negative: CTAB, no wheezes, no rales, no ronchi, normal chest expansion, no tachypnea, normal percussion, rales, rhonchi, tachypneic, wheezes Gastrointestinal: negative: soft, non-tender, non-distended, normal bowel sounds, no palpable masses, no hepatomegaly, no splenomegaly, no bruit, no guarding, no rigidity, tender to palpation, distended, diminished bowl sounds, voluntary guarding Extremities: negative: no cyanosis, no clubbing, no edema, 1+ LE edema, 2+ LE edema, clubbing Hosp A/P (1) Acute respiratory failure Code(s): J96.00 - ACUTE RESPIRATORY FAILURE, UNSP W HYPOXIA OR HYPERCAPNIA Status: Acute (2) Elevated liver enzymes Code(s): R74.8 - ABNORMAL LEVELS OF OTHER SERUM ENZYMES Status: Acute (3) Obesity Code(s): E66.9 - OBESITY, UNSPECIFIED Status: Acute (4) Pneumonia due to COVID-19 virus Code(s): U07.1 - COVID-19; J12.89 - OTHER VIRAL PNEUMONIA Status: Acute - Plan Acute resp failure secondary to COVID pneumonia - improved WBC count and lower inflammatory markers - on day 4 of 5 remdesivir and steroids - s/p convalescent plasma - continue high flow oxygen - wean as tolerated - albuterol prn - appreciate Pulm consult Elevated liver tests - attributed to covid infection - stable dvt prophy - lovenox gi prophy - famotidine while on steroids code status full 10/25 we will continue to monitor patient encouraged to get up and move around. She still on high flow. 10/26 s/p remdesivir and plasma. pt's lft's are high she has no pain and has had cholecystectomy in the past. encouraged pt to get up and sit up in chair.
[2020-10-26] MEDS: REMDESIVIR (EUA) 100 MG in Sodium Chloride 0.9% 250 ML 230 ML IV SCH (15:21)
[2020-10-26] MEDS: Sodium Chloride 0.9% 1,000 ML IV SCH (15:21)
[2020-10-26] MEDS: Doxycycline 100 MG CAP PO SCH (20:53)
[2020-10-27] MEDS: Sodium Chloride 0.9% 1,000 ML IV SCH ×2 (00:54→16:18)
[2020-10-27] MEDS: Benzonatate 100 MG CAP PO PRN ×3 (05:41→20:29)
[2020-10-27] MEDS: Mometasone 200 MCG/Formoterol 5 MCG 120 PUFF INHALER INH SCH ×2 (05:41→18:23)
[2020-10-27] MEDS: Guaifenesin DM 100-10/5 ML UDCUP PO PRN ×3 (05:41→20:28)
[2020-10-27] MEDS: Enoxaparin Sodium 40 MG/0.4 ML SYRINGE SC SCH ×2 (08:10→20:28)
[2020-10-27] MEDS: Dexamethasone 6 MG in Sodium Chloride 0.9% 50 ML IVPB SCH ×2 (08:10→20:28)
[2020-10-27] MEDS: Doxycycline 100 MG CAP PO SCH ×2 (08:10→20:28)
[2020-10-27] MEDS: Famotidine 20 MG TAB PO SCH ×2 (08:11→20:28)
--- NOTE | 2020-10-27 11:53 | PRG ---
DATE OF SERVICE: 10/27/2020 SUBJECTIVE: Domonique Valle is a 40-year-old obese female, doing somewhat better. Chest x-ray yesterday shows elevated left hemidiaphragm, bilateral haziness still. OBJECTIVE: VITAL SIGNS: Temperature 97, pulse 58, respirations 20. Saturations 99% on flow rate of 40, 35%. Blood pressure 110/73. CHEST: No wheezing. No crackles. CARDIAC: Normal S1, S2. No gallops. ABDOMEN: No masses. IMPRESSION: Santacruz positive pneumonia, morbid obesity, abnormal chest x-ray. It looks like she is doing better. She has finished a course of remdesivir, convalescent plasma. Maybe tomorrow, we can switch over to p.o. prednisone and low-flow O2 as tolerated. Job ID: [id number]
--- NOTE | 2020-10-27 13:27 | PDOC.HOSPP ---
- Subjective Encounter Date: 10/27/20 Encounter Time: 10:30 Subjective: pt up in bed states feels a bit better. - Objective Vital Signs & Weight: Vital Signs (12 hours) Temp Pulse Resp BP Pulse Ox 10/27/20 08:44 97.8 F 58 L 20 110/73 99 10/27/20 08:00 99 10/27/20 03:38 98.2 F 10/27/20 03:32 63 20 106/72 95 Weight Weight 205 lb 15.646 oz I&O: 10/26/20 10/27/20 10/28/20 06:59 06:59 06:59 Intake Total 2450 1700 200 Balance 2450 1700 200 Result Diagrams: 10/25/20 06:22 10/25/20 06:22 Hospitalist ROS - Review of Systems Cardiovascular: denies: chest pain, palpitations, orthopnea, paroxysmal noc. dyspnea, edema, light headedness, other Gastrointestinal: denies: nausea, vomiting, abdominal pain, diarrhea, constipation, melena, hematochezia, other Genitourinary: denies: dysuria, frequency, incontinence, hematuria, retention, other - Medication Medications: Active Medications Generic Name Dose Route Start Last Admin Trade Name Freq PRN Reason Stop Dose Admin Acetaminophen 650 mg 10/21/20 21:29 10/24/20 20:31 Acetaminophen 325 Mg Tab PO 650 mg Q4H PRN Administration Headache/Fever/Mild Pain (1-3) Albuterol Sulfate 2 puff 10/22/20 14:05 10/23/20 13:35 Albuterol 200 Puff (6.7gm Inhaler) INH 2 puff [id number] PRN Administration Wheezing Alprazolam 0.25 mg 10/22/20 11:46 10/26/20 21:01 Alprazolam 0.25 Mg Tab PO 0.25 mg BIDPRN PRN Administration Anxiety Benzonatate 100 mg 10/22/20 11:46 10/27/20 13:18 Benzonatate 100 Mg Cap PO 100 mg Q4H PRN Administration Cough Doxycycline Hyclate 100 mg 10/26/20 21:00 10/27/20 08:10 Doxycycline 100 Mg Cap PO 11/02/20 21:01 100 mg BID YANETH Administration Enoxaparin Sodium 40 mg 10/23/20 21:00 10/27/20 08:10 Enoxaparin Sodium 40 Mg/0.4 Ml Syringe SC 40 mg BID YANETH Administration Famotidine 20 mg 10/22/20 09:00 10/27/20 08:11 Famotidine 20 Mg Tab PO 20 mg BID YANETH Administration Guaifenesin/Dextromethorphan 15 ml 10/22/20 11:46 10/27/20 13:18 Guaifenesin Dm 100-10/5 Ml Udcup PO 15 ml Q4H PRN Administration Cough Dexamethasone 6 mg/ Sodium 50.6 mls @ 100 mls/hr 10/23/20 21:00 10/27/20 08:10 Chloride IVPB 50.6 mls BID YANETH Administration Sodium Chloride 1,000 mls @ 75 mls/hr 10/25/20 09:15 10/27/20 00:54 Normal Saline 0.9% IV Not Given .[id number] YANETH Loperamide HCl 2 mg 10/23/20 18:09 10/23/20 21:32 Loperamide Hcl 2 Mg Cap PO 2 mg PRN PRN Administration Diarrhea/Loose Stools Mometasone Furoate/Formoterol Fumar 2 puff 10/23/20 18:30 10/27/20 05:41 Mometasone 200 Mcg/Formoterol 5 Mcg 120 Puff Inhaler INH 2 puff BID-RT YANETH Administration Sodium Chloride 10 ml 10/26/20 21:00 10/27/20 08:12 Flush - Normal Saline 10 Ml Syringe IVF Not Given Q12HR YANETH - Exam Heart: negative: RRR, no murmur, no gallops, no rubs, normal peripheral pulses, irregular, diminshed peripheral pulses, murmur present, II/IV, III/IV Respiratory: rhonchi Gastrointestinal: negative: soft, non-tender, non-distended, normal bowel sounds, no palpable masses, no hepatomegaly, no splenomegaly, no bruit, no guarding, no rigidity, tender to palpation, distended, diminished bowl sounds, voluntary guarding Extremities: negative: no cyanosis, no clubbing, no edema, 1+ LE edema, 2+ LE edema, clubbing Hosp A/P (1) Acute respiratory failure Code(s): J96.00 - ACUTE RESPIRATORY FAILURE, UNSP W HYPOXIA OR HYPERCAPNIA Status: Acute (2) Elevated liver enzymes Code(s): R74.8 - ABNORMAL LEVELS OF OTHER SERUM ENZYMES Status: Acute (3) Obesity Code(s): E66.9 - OBESITY, UNSPECIFIED Status: Acute (4) Pneumonia due to COVID-19 virus Code(s): U07.1 - COVID-19; J12.89 - OTHER VIRAL PNEUMONIA Status: Acute - Plan Acute resp failure secondary to COVID pneumonia - improved WBC count and lower inflammatory markers - on day 4 of 5 remdesivir and steroids - s/p convalescent plasma - continue high flow oxygen - wean as tolerated - albuterol prn - appreciate Pulm consult Elevated liver tests - attributed to covid infection - stable dvt prophy - lovenox gi prophy - famotidine while on steroids code status full 10/25 we will continue to monitor patient encouraged to get up and move around. She still on high flow. 10/26 s/p remdesivir and plasma. pt's lft's are high she has no pain and has had cholecystectomy in the past. encouraged pt to get up and sit up in chair. 10/27 pt up in bed still on high flow which is being weaned off. pt encouraged to move around. dvt ppx. will continue to monitor.
[2020-10-27] MEDS: ALPRAZolam 0.25 MG TAB PO PRN (20:29)
[2020-10-28] MEDS: Mometasone 200 MCG/Formoterol 5 MCG 120 PUFF INHALER INH SCH ×2 (06:00→17:30)
[2020-10-28] MEDS: Famotidine 20 MG TAB PO SCH ×2 (09:13→20:30)
[2020-10-28] MEDS: Benzonatate 100 MG CAP PO PRN ×2 (09:13→20:30)
[2020-10-28] MEDS: Dexamethasone 6 MG in Sodium Chloride 0.9% 50 ML IVPB SCH (09:13)
[2020-10-28] MEDS: Enoxaparin Sodium 40 MG/0.4 ML SYRINGE SC SCH ×2 (09:13→20:31)
[2020-10-28] MEDS: Guaifenesin DM 100-10/5 ML UDCUP PO PRN ×2 (09:13→20:38)
[2020-10-28] MEDS: Doxycycline 100 MG CAP PO SCH ×2 (09:13→20:30)
--- NOTE | 2020-10-28 13:55 | PRG ---
DATE OF SERVICE: 10/28/2020 SUBJECTIVE: The patient remains in hospital with COVID-19 pneumonia. PHYSICAL EXAMINATION: VITAL SIGNS: Temperature 98.2, pulse rate 70, respirations are 18, O2 saturation 100% on 4 L, blood pressure 108/71. Exam is unchanged. ASSESSMENT: COVID positive pneumonia. PLAN: 1. Anticoagulate. 2. Can switch to oral steroids. The patient likely can be sent home with oxygen soon. Job ID: [id number]
--- NOTE | 2020-10-28 14:46 | PDOC.HOSPP ---
- Subjective Encounter Date: 10/28/20 Encounter Time: 11:45 Subjective: pt up in bed feels well on NC. - Objective Vital Signs & Weight: Vital Signs (12 hours) Temp Pulse Resp BP Pulse Ox 10/28/20 08:00 98.2 F 72 18 108/71 100 10/28/20 05:43 95 Weight Weight 205 lb 15.646 oz I&O: 10/27/20 10/28/20 10/29/20 06:59 06:59 06:59 Intake Total 1700 680 360 Balance 1700 680 360 Result Diagrams: 10/25/20 06:22 10/25/20 06:22 Hospitalist ROS - Review of Systems Cardiovascular: denies: chest pain, palpitations, orthopnea, paroxysmal noc. dyspnea, edema, light headedness, other Gastrointestinal: denies: nausea, vomiting, abdominal pain, diarrhea, constipation, melena, hematochezia, other Genitourinary: denies: dysuria, frequency, incontinence, hematuria, retention, other - Medication Medications: Active Medications Generic Name Dose Route Start Last Admin Trade Name Freq PRN Reason Stop Dose Admin Acetaminophen 650 mg 10/21/20 21:29 10/24/20 20:31 Acetaminophen 325 Mg Tab PO 650 mg Q4H PRN Administration Headache/Fever/Mild Pain (1-3) Albuterol Sulfate 2 puff 10/22/20 14:05 10/23/20 13:35 Albuterol 200 Puff (6.7gm Inhaler) INH 2 puff [id number] PRN Administration Wheezing Alprazolam 0.25 mg 10/22/20 11:46 10/27/20 20:29 Alprazolam 0.25 Mg Tab PO 0.25 mg BIDPRN PRN Administration Anxiety Benzonatate 100 mg 10/22/20 11:46 10/28/20 09:13 Benzonatate 100 Mg Cap PO 100 mg Q4H PRN Administration Cough Doxycycline Hyclate 100 mg 10/26/20 21:00 10/28/20 09:13 Doxycycline 100 Mg Cap PO 11/02/20 21:01 100 mg BID YANETH Administration Enoxaparin Sodium 40 mg 10/23/20 21:00 10/28/20 09:13 Enoxaparin Sodium 40 Mg/0.4 Ml Syringe SC 40 mg BID YANETH Administration Famotidine 20 mg 10/22/20 09:00 10/28/20 09:13 Famotidine 20 Mg Tab PO 20 mg BID YANETH Administration Guaifenesin/Dextromethorphan 15 ml 10/22/20 11:46 10/28/20 09:13 Guaifenesin Dm 100-10/5 Ml Udcup PO 15 ml Q4H PRN Administration Cough Loperamide HCl 2 mg 10/23/20 18:09 10/23/20 21:32 Loperamide Hcl 2 Mg Cap PO 2 mg PRN PRN Administration Diarrhea/Loose Stools Mometasone Furoate/Formoterol Fumar 2 puff 10/23/20 18:30 10/28/20 06:00 Mometasone 200 Mcg/Formoterol 5 Mcg 120 Puff Inhaler INH 2 puff BID-RT YANETH Administration Sodium Chloride 10 ml 10/26/20 21:00 10/28/20 09:14 Flush - Normal Saline 10 Ml Syringe IVF 10 ml Q12HR YANETH Administration - Exam Neck: negative: supple, symmetric, no JVD, no thyromegaly, no lymphadenopathy, no carotid bruit, JVD Heart: negative: RRR, no murmur, no gallops, no rubs, normal peripheral pulses, irregular, diminshed peripheral pulses, murmur present, II/IV, III/IV Respiratory: negative: CTAB, no wheezes, no rales, no ronchi, normal chest expansion, no tachypnea, normal percussion, rales, rhonchi, tachypneic, wheezes Gastrointestinal: negative: soft, non-tender, non-distended, normal bowel sounds, no palpable masses, no hepatomegaly, no splenomegaly, no bruit, no guarding, no rigidity, tender to palpation, distended, diminished bowl sounds, voluntary guarding Hosp A/P (1) Acute respiratory failure Code(s): J96.00 - ACUTE RESPIRATORY FAILURE, UNSP W HYPOXIA OR HYPERCAPNIA Status: Acute (2) Elevated liver enzymes Code(s): R74.8 - ABNORMAL LEVELS OF OTHER SERUM ENZYMES Status: Acute (3) Obesity Code(s): E66.9 - OBESITY, UNSPECIFIED Status: Acute (4) Pneumonia due to COVID-19 virus Code(s): U07.1 - COVID-19; J12.89 - OTHER VIRAL PNEUMONIA Status: Acute - Plan Acute resp failure secondary to COVID pneumonia - improved WBC count and lower inflammatory markers - on day 4 of 5 remdesivir and steroids - s/p convalescent plasma - continue high flow oxygen - wean as tolerated - albuterol prn - appreciate Pulm consult Elevated liver tests - attributed to covid infection - stable dvt prophy - lovenox gi prophy - famotidine while on steroids code status full 10/25 we will continue to monitor patient encouraged to get up and move around. She still on high flow. 10/26 s/p remdesivir and plasma. pt's lft's are high she has no pain and has had cholecystectomy in the past. encouraged pt to get up and sit up in chair. 10/27 pt up in bed still on high flow which is being weaned off. pt encouraged to move around. dvt ppx. will continue to monitor. 10/28 patient currently on 5 to 6 L of oxygen. Patient courage to get up and ambulate we will continue current medications. Hopefully patient to be discharged in the next 24 to 48 hours. Will check labs in a.m.
[2020-10-28] MEDS: ALPRAZolam 0.25 MG TAB PO PRN (20:53)
[2020-10-29] MEDS: Mometasone 200 MCG/Formoterol 5 MCG 120 PUFF INHALER INH SCH ×2 (05:46→17:54)
[2020-10-29 06:28] LABS: Band 1 % (5-11); Hemoglobin 12.4 g/dL (12.0-16.0); Lymphocytes 4 % (21-51); MDiff Complete? YES; Mean Corpuscular HGB CONC 32.9 g/dL (32.0-36.0); Mean Corpuscular Hemoglobin 31.6 pg (27.0-31.0); Mean Corpuscular Volume 95.9 fL (78.0-98.0); Mean Platelet Volume 8.6 fL (7.4-10.4); Monocytes 9 % (0-10); Neutrophil 86 % (42-75); Platelet Count 287 thou/uL (130-400); Platelet Morphology Comment Appears Adequate; RBC Distribution Width 12.1 % (11.5-14.5); RBC Morphology Normal; Red Blood Cell (RBC) Count 3.94 mill/uL (4.20-5.40)
[2020-10-29 06:33] LABS: ALT (SGPT) 87 U/L (8-55); AST (SGOT) 28 U/L (5-34); Albumin 2.4 g/dL (3.5-5.0); Alkaline Phosphatase 104 U/L (40-110); Anion Gap 10 mmol/L (10-20); BUN (Urea Nitrogen) 11 mg/dL (7.0-18.7); Bilirubin, Total 0.5 mg/dL (0.2-1.2); Calc. Creatinine Clearance 192 mL/min (70-130); Calcium 7.2 mg/dL (7.8-10.44); Carbon Dioxide 27 mmol/L (22-29); Chloride 107 mmol/L (98-107); Estimated GFR-MDRD Greater than 90; Globulin 2.4 g/dL (2.4-3.5); Glucose 97 mg/dL (70-105); Potassium 3.4 mmol/L (3.5-5.1); Protein, Total 4.8 g/dL (6.0-8.3); Sodium 141 mmol/L (136-145)
[2020-10-29] MEDS: Famotidine 20 MG TAB PO SCH ×2 (08:39→20:22)
[2020-10-29] MEDS: Doxycycline 100 MG CAP PO SCH ×2 (08:39→20:22)
[2020-10-29] MEDS: predniSONE 20 MG TAB PO SCH (08:39)
[2020-10-29] MEDS: Enoxaparin Sodium 40 MG/0.4 ML SYRINGE SC SCH ×2 (08:39→20:22)
[2020-10-29] MEDS ORDERED: Potassium Chloride 20 MEQ TAB PO SCH (08:45)
--- NOTE | 2020-10-29 16:15 | PDOC.HOSPP ---
- Subjective Encounter Date: 10/29/20 Encounter Time: 10:00 Subjective: Patient up in bed appears well on 3 L nasal cannula. - Objective Vital Signs & Weight: Vital Signs (12 hours) Temp Pulse Resp BP Pulse Ox 10/29/20 15:42 66 18 104/64 98 10/29/20 12:00 98.0 F 68 18 102/60 98 10/29/20 08:00 98.2 F 64 20 98/64 Weight Weight 205 lb 15.646 oz I&O: 10/28/20 10/29/20 10/30/20 06:59 06:59 06:59 Intake Total 680 600 Balance 680 600 Result Diagrams: 10/29/20 05:44 10/29/20 05:44 Hospitalist ROS - Review of Systems Cardiovascular: denies: chest pain, palpitations, orthopnea, paroxysmal noc. dyspnea, edema, light headedness, other Gastrointestinal: denies: nausea, vomiting, abdominal pain, diarrhea, constipation, melena, hematochezia, other Genitourinary: denies: dysuria, frequency, incontinence, hematuria, retention, other - Medication Medications: Active Medications Generic Name Dose Route Start Last Admin Trade Name Freq PRN Reason Stop Dose Admin Acetaminophen 650 mg 10/21/20 21:29 10/24/20 20:31 Acetaminophen 325 Mg Tab PO 650 mg Q4H PRN Administration Headache/Fever/Mild Pain (1-3) Albuterol Sulfate 2 puff 10/22/20 14:05 10/23/20 13:35 Albuterol 200 Puff (6.7gm Inhaler) INH 2 puff [id number] PRN Administration Wheezing Alprazolam 0.25 mg 10/22/20 11:46 10/28/20 20:53 Alprazolam 0.25 Mg Tab PO 0.25 mg BIDPRN PRN Administration Anxiety Benzonatate 100 mg 10/22/20 11:46 10/28/20 20:30 Benzonatate 100 Mg Cap PO 100 mg Q4H PRN Administration Cough Doxycycline Hyclate 100 mg 10/26/20 21:00 10/29/20 08:39 Doxycycline 100 Mg Cap PO 11/02/20 21:01 100 mg BID YANETH Administration Enoxaparin Sodium 40 mg 10/23/20 21:00 11/28/20 08:39 Enoxaparin Sodium 40 Mg/0.4 Ml Syringe SC 40 mg BID YANETH Administration Famotidine 20 mg 10/22/20 09:00 10/29/20 08:39 Famotidine 20 Mg Tab PO 20 mg BID YANETH Administration Guaifenesin/Dextromethorphan 15 ml 10/22/20 11:46 10/28/20 20:38 Guaifenesin Dm 100-10/5 Ml Udcup PO 15 ml Q4H PRN Administration Cough Loperamide HCl 2 mg 10/23/20 18:09 10/23/20 21:32 Loperamide Hcl 2 Mg Cap PO 2 mg PRN PRN Administration Diarrhea/Loose Stools Mometasone Furoate/Formoterol Fumar 2 puff 10/23/20 18:30 10/29/20 05:46 Mometasone 200 Mcg/Formoterol 5 Mcg 120 Puff Inhaler INH 2 puff BID-RT YANETH Administration Prednisone 40 mg 10/29/20 09:00 10/29/20 08:39 Prednisone 20 Mg Tab PO 40 mg DAILY YANETH Administration Sodium Chloride 10 ml 10/26/20 21:00 10/29/20 08:40 Flush - Normal Saline 10 Ml Syringe IVF 10 ml Q12HR YANETH Administration - Exam Heart: negative: RRR, no murmur, no gallops, no rubs, normal peripheral pulses, irregular, diminshed peripheral pulses, murmur present, II/IV, III/IV Respiratory: negative: CTAB, no wheezes, no rales, no ronchi, normal chest expansion, no tachypnea, normal percussion, rales, rhonchi, tachypneic, wheezes Gastrointestinal: negative: soft, non-tender, non-distended, normal bowel sounds, no palpable masses, no hepatomegaly, no splenomegaly, no bruit, no guarding, no rigidity, tender to palpation, distended, diminished bowl sounds, voluntary guarding Hosp A/P (1) Acute respiratory failure Code(s): J96.00 - ACUTE RESPIRATORY FAILURE, UNSP W HYPOXIA OR HYPERCAPNIA S tatus: Acute (2) Elevated liver enzymes Code(s): R74.8 - ABNORMAL LEVELS OF OTHER SERUM ENZYMES Status: Acute (3) Obesity Code(s): E66.9 - OBESITY, UNSPECIFIED Status: Acute (4) Pneumonia due to COVID-19 virus Code(s): U07.1 - COVID-19; J12.89 - OTHER VIRAL PNEUMONIA Status: Acute - Plan Acute resp failure secondary to COVID pneumonia - improved WBC count and lower inflammatory markers - on day 4 of 5 remdesivir and steroids - s/p convalescent plasma - continue high flow oxygen - wean as tolerated - albuterol prn - appreciate Pulm consult Elevated liver tests - attributed to covid infection - stable dvt prophy - lovenox gi prophy - famotidine while on steroids code status full 10/25 we will continue to monitor patient encouraged to get up and move around. She still on high flow. 10/26 s/p remdesivir and plasma. pt's lft's are high she has no pain and has had cholecystectomy in the past. encouraged pt to get up and sit up in chair. 10/27 pt up in bed still on high flow which is being weaned off. pt encouraged to move around. dvt ppx. will continue to monitor. 10/28 patient currently on 5 to 6 L of oxygen. Patient courage to get up and ambulate we will continue current medications. Hopefully patient to be discharged in the next 24 to 48 hours. Will check labs in a.m. 10/29 patient currently on 3 L nasal cannula we will continue to monitor possible discharge in a.m. Continue DVT prophylaxis.
[2020-10-29] MEDS: Guaifenesin DM 100-10/5 ML UDCUP PO PRN (20:22)
[2020-10-29] MEDS: ALPRAZolam 0.25 MG TAB PO PRN (20:22)
[2020-10-29] MEDS: Benzonatate 100 MG CAP PO PRN (20:22)
[2020-10-30] MEDS: Benzonatate 100 MG CAP PO PRN (02:32)
[2020-10-30] MEDS: Guaifenesin DM 100-10/5 ML UDCUP PO PRN (02:32)
[2020-10-30] MEDS: Mometasone 200 MCG/Formoterol 5 MCG 120 PUFF INHALER INH SCH (06:07)
[2020-10-30] MEDS: Doxycycline 100 MG CAP PO SCH (07:42)
[2020-10-30] MEDS: Famotidine 20 MG TAB PO SCH (07:42)
[2020-10-30] MEDS: Enoxaparin Sodium 40 MG/0.4 ML SYRINGE SC SCH (07:42)
[2020-10-30] MEDS: predniSONE 20 MG TAB PO SCH (07:42)
[2020-10-30 10:29] VITALS: BP 91/60; TEMP 98.2
--- NOTE | 2020-10-30 19:00 | DIS ---
DATE OF ADMISSION: 10/21/2020 DATE OF DISCHARGE: 10/30/2020 DISCHARGE DIAGNOSES: As of the following; 1. Acute hypoxic respiratory failure. 2. Elevated LFTs. 3. Obesity. 4. Pneumonia due to COVID. HOSPITAL COURSE: The patient is a 40-year-old female, who initially presented to the hospital with shortness of breath. She was found to be COVID positive. She did have extensive elevated LFTs. However, on discharge, her LFTs had improved. I have asked her to follow up as an outpatient for a right upper quadrant ultrasound since given the fact that she is COVID, that would not be done as an in-hospital. She has had status post cholecystectomy. She received remdesivir and was put on steroids. The patient initially was on high flow and then was downgraded to nasal cannula. She will be discharged home on 2 L of nasal cannula. She also received convalescent plasma. She was seen by Pulmonary. The patient also has received DVT prophylaxis. She has been getting up, ambulating, and eating without any problems. HOME MEDICATIONS: 1. I am going to continue her on aspirin 325 for DVT prophylaxis. 2. Also albuterol as needed. 3. Tessalon Perles as needed. 4. Dexamethasone for another four days. 5. Doxycycline per Pulmonary 100 mg b.i.d. 6. Dulera two puffs b.i.d. PHYSICAL EXAMINATION: VITAL SIGNS: Temperature of 98.2, heart rate 80, respiratory rate 18, O2 saturations 95% on 2 L nasal cannula, and her blood pressure is 104/64. GENERAL: She is awake, alert, and oriented x3. Does not appear in distress. CV: S1 and S2 present. No murmurs, rubs, or gallops. I did speak with her and she is stable enough to be discharged home. Job ID: [id number]
--- NOTE | 2020-11-01 02:52 | PQF ---
Dear : Yudy Alegre Date 11/01/2020 Please exercise your independent, professional judgment in responding to the clarification form. Clinical indicators are provided on the bottom of this form for your review Can you please further clarify the diagnosis of the patient? Please check appropriate box(es): [x ] Sepsis due to: COVID Pneumonia [ ] Severe sepsis [ ] Septic Shock [ ] Localized infection without sepsis [ ] Other diagnosis please specify [ ] Unable to determine Physician Signature: Date/Time: For continuity of documentation, please document condition throughout progress notes and discharge summary. Thank You. To be completed by CDI/Coding staff for physician review: Present Clinical Indicators - Signs / Symptoms / Labs Results and Location in Medical Record [ x ] VS: BP 99/68, RR: 20, MA: 121, T: 101.8 Vital Signs Flowsheets 10/21 [ x ] Sepsis 2/2 zepeda virus disease 2019 infection? H and P pg.2 [ x ] WBC: 26.0H, 21.0H, 14.8H, 10.1, 8.8, 12.0H Laboratory [ x ] Xray shows persistent pulmonary infiltrates PN 10/26 [ x ] Acute respiratory failure 2/2 covid Pneumonia Hospitalist PN pg.4 [ x ] Blood culture no growth for 5 days Microbiology [ x ] Lactic Acid: 1.7 Laboratory 10/21 Present Risk Factors Results and Location in Medical Record [ x ] COVID Pneumonia Hospitalist PN pg.4 [ x ] Obesity PN 10/22 Present Treatments Results and Location in Medical Record [ x ] IV Fluids JAN [ x ] Isolation H and P pg.2 [ x ] Remdesivir IV JAN [ x ] Pulmonary Consult Dr. Boyd [ x ] Oxygen Via NC HP 10/21 [ x ] Septic work up initiated HP 10/21 [ x ] Azithromycin 250mg IV MAR 10/21 [ x ] Rocephin 1gm IV MAR 10/21 [ x ] Ancef 1gm IV FEB 09 CDS/Supervisor Plastering Signature: [address] Phone #: ext [phone] Date 11/01/20 MTDD
== END 2020-10-30 15:57 | disposition home or self-care (01) | DRG 871 ==
LOC: ERS 18:42 → ERHOLD 22:00 → T4-B 10-22 13:42
PROVIDERS: ADMIT Internal Medicine; ATTEND Internal Medicine
PROC: 8E0ZXY6 Isolation (ICD-10-PCS; 2020-10-21)
PROC: XW13325 Transfusion of Convalescent Plasma (Nonautologous) into Peripheral Vein, Percutaneous Approach, New Technology Group 5 (ICD-10-PCS; principal; 2020-10-22)
PROC: XW033E5 Introduction of Remdesivir Anti-infective into Peripheral Vein, Percutaneous Approach, New Technology Group 5 (ICD-10-PCS; 2020-10-22)
DX: A41.89 Other specified sepsis (principal); U07.1 COVID-19; J12.89 Other viral pneumonia; J96.01 Acute respiratory failure with hypoxia; E66.01 Morbid (severe) obesity due to excess calories; Z90.49 Acquired absence of other specified parts of digestive tract; Z98.84 Bariatric surgery status; Z68.37 Body mass index [BMI] 37.0-37.9, adult
CPT/HCPCS: 36415; 36430; 71045; 71275; 80053; 80076; 81003; 81015; 82728; 83605; 83690; 83880; 84484; 84703; 85025; 85379; 86140; 86850; 86900; 86901; 87040; 87086; 87324; 87449; 93005; 96374; J0456; J0690; J0696; J1100; J1650; J7050; J7512; P9017; Q9967; S0028

== ENCOUNTER 2021-07-26 14:31 | Outpatient (CLI) | payer OTHER | END 2021-07-26 14:32 | disposition home or self-care (01) | LOC: BICMAMMO 14:31 | PROVIDERS: ATTEND Obstetrics & Gynecology | DX: Z12.31 Encounter for screening mammogram for malignant neoplasm of breast (principal) | CPT/HCPCS: 77063; 77067 ==

== ENCOUNTER 2022-01-05 09:35 | Emergency (ER) | payer OTHER ==
[2022-01-05] MEDS ORDERED: Dexamethasone 10 MG/ML VIAL ONE (10:09)
[2022-01-05] MEDS ORDERED: Metoclopramide HCl 10 MG/2 ML VIAL ONE (10:09)
[2022-01-05] MEDS ORDERED: Ketorolac Tromethamine 30 MG/ML VIAL ONE (10:09)
[2022-01-05 10:12] LABS: #Basophils 0.1 thou/uL (0.0-0.2); #Eosinphils 0.1 thou/uL (0.0-0.7); #Lymphocytes 1.8 thou/uL (1.20-3.40); #Monocytes 0.8 thou/uL (0.11-0.59); %Basophils 0.6 % (0.0-1.0); %Eosinophils 0.9 % (0.0-10.0); %Lymphocytes 18.6 % (21.0-51.0); %Monocytes 8.2 % (0.0-10.0); %Neutrophils 71.8 % (42.0-75.0); Hemoglobin 14.4 g/dL (12.0-16.0); Mean Corpuscular HGB CONC 32.9 g/dL (32.0-36.0); Mean Corpuscular Hemoglobin 31.1 pg (27.0-31.0); Mean Corpuscular Volume 94.7 fL (78.0-98.0); Mean Platelet Volume 7.8 fL (7.4-10.4); Platelet Count 239 thou/uL (130-400); RBC Distribution Width 11.4 % (11.5-14.5); Red Blood Cell (RBC) Count 4.64 mill/uL (4.20-5.40); White Blood Cell (WBC) Count 9.8 thou/uL (4.8-10.8)
[2022-01-05 10:24] LABS: BHCG - Serum Negative (NEGATIVE); Pregs Control Bar Appear? YES (CONTROL BAR)
[2022-01-05 10:25] LABS: Pregs Control Background? CLEAR/WHITE (CLR/WHITE)
[2022-01-05 10:40] LABS: ALT (SGPT) 11 U/L (8-55); AST (SGOT) 19 U/L (5-34); Albumin 4.2 g/dL (3.5-5.0); Alkaline Phosphatase 134 U/L (40-110); Anion Gap 17 mmol/L (10-20); BUN (Urea Nitrogen) 10 mg/dL (7.0-18.7); Bilirubin, Total 0.4 mg/dL (0.2-1.2); CK (CPK) 41 U/L (29-168); Calc. Creatinine Clearance 0 mL/min (70-130); Calcium 9.4 mg/dL (7.8-10.44); Carbon Dioxide 19 mmol/L (22-29); Chloride 105 mmol/L (98-107); Globulin 3.9 g/dL (2.4-3.5); Glucose 94 mg/dL (70-105); Lipase 46 U/L (8-78); Potassium 4.8 mmol/L (3.5-5.1); Protein, Total 8.1 g/dL (6.0-8.3); Sodium 136 mmol/L (136-145)
[2022-01-05] MEDS ORDERED: Iopamidol-370 76% 500 ML 1 ML ONE (11:53)
== END 2022-01-05 12:40 | disposition home or self-care (01) ==
LOC: ERS 09:35
DX: R07.81 Pleurodynia (principal); R07.2 Precordial pain; R51.9 Headache, unspecified; I10 Essential (primary) hypertension; R00.0 Tachycardia, unspecified
CPT/HCPCS: 71275; 80053; 82550; 83690; 84484; 84703; 85025; 93005; 96374; 96375; J1100; J1885; J2765; Q9967

== ENCOUNTER 2024-06-10 09:22 | Outpatient (CLI) | payer OTHER | END 2024-06-10 09:23 | disposition home or self-care (01) | LOC: BICMAMMO 09:22 | PROVIDERS: ATTEND Family Medicine | DX: Z12.31 Encounter for screening mammogram for malignant neoplasm of breast (principal) | CPT/HCPCS: 77063; 77067 ==